=== PATIENT | female | born 1970 | race Caucasian/White ===

== ENCOUNTER 2020-01-26 15:28 | Emergency (ER) | payer OTHER, SELFPAY ==
--- NOTE | ~2020-01-26 | XR_ITS ---
EXAMINATION: XR chest 2V DATE: 01/26/2020 16:18 INDICATION: Chest pain and shortness of breath TECHNIQUE: PA and lateral views of the chest are obtained. COMPARISON: None available FINDINGS: There are minimal left basilar airspace opacities. There is no pleural effusion or pneumoth orax. The cardiomediastinal silhouette is normal. There is mild thoracic spondylosis. Surgical clips in the right upper quadrant are likely from prior cholecystectomy. IMPRESSION: 1. Minimal left basilar airspace opacity, consistent with atelectasis versus pneumonia. Reviewed, dictated and finalized at location A. IMPRESSION: 1. Minimal left basilar airspace opacity, consistent with atelectasis versus pn eumonia.
[2020-01-26 15:29] VITALS: BP 119/87; PULSE 88; RESP 18; TEMP 36.8; O2SAT 100
--- NOTE | 2020-01-26 15:32 | ECG_ITS ---
Measurements Intervals [place] Rate: 77 P: 140 ME: 122 QRS: 119 QRSD: 86 T: 124 QT: 372 QTc: 422 Interpretive Statements SINUS RHYTHM ARM LEADS REVERSED BORDERLINE T WAVE ABNORMALITY- INFERIOR LEADS BASELINE WANDER- V3 BORDERLINE ECG Electronically Signed On 01-26-2020 20:49:58 CDT by Andrew Mccoy D.O.
[2020-01-26 15:52] LABS: Basophils Absolute Auto 0.1 K/mm3 (0.0-0.1); Basophils Percent Auto 0.8 % (0.2-1.2); Eosinophils Absolute Auto 0.2 K/mm3 (0-0.3); Eosinophils Percent Auto 2.4 % (0-4.4); Hematocrit 45.2 % (37.0-47.0); Hemoglobin 15.2 g/dL (12.0-15.0); Immature Granulocyte Absolute 0.05 K/mm3 (0.00-0.031); Immature Granulocyte Percent A 0.6 % (0-0.5); Lymphocytes Absolute Auto 2.48 K/mm3 (0.9-3.2); Lymphocytes Percent Auto 29.3 % (18.3-44.2); Mean Corpuscular HGB Conc 33.6 g/dl (32-36); Mean Corpuscular Hemoglobin 28.8 pg (26-34); Mean Corpuscular Volume 85.6 fl (80-100); Mean Platelet Volume 10.4 fl (7.4-10.4); Monocytes Absolute Auto 0.7 K/mm3 (0.1-0.6); Monocytes Percent Auto 8.5 % (2.6-8.5); Neutrophils Absolute Auto 4.9 K/mm3 (1.3-6.7); Neutrophils Percent Auto 58.4 % (45.5-73.1); Platelet Count Result 271 k/mm3 (150-375); Red Blood Count 5.28 M/mm3 (4.2-5.4); White Blood Count 8.5 K/mm3 (4.5-10.0)
[2020-01-26 16:01] LABS: INR 0.9; Prothrombin Time 11.6 Seconds (11.1-14.7)
[2020-01-26 16:02] LABS: Partial Thromboplastin Time 25.8 SECONDS (22.3-36.8)
[2020-01-26 16:08] LABS: Anion Gap 10.4 mmol/L (7-16); Blood Urea Nitrogen 13 mg/dL (7-17); Calcium 9.1 mg/dL (8.4-10.2); Carbon Dioxide 19 mmol/L (22-30); Chloride 110 mmol/L (98-107); Estimated CRCL calculation 73 ml/min; Estimated Glomerular Filt Rate > 60; Glucose 108 mg/dL (65-105); Potassium 3.4 mmol/L (3.4-5.0); Sodium 136 mmol/L (137-145)
[2020-01-26 16:19] LABS: Troponin I < 0.012 ng/mL (0.000-0.034)
--- NOTE | 2020-01-26 17:33 | ED.CHESTPAIN ---
HPI - Chest Pain General Chief Complaint: Chest Pain Stated Complaint: chest pain Time Seen by Provider: 01/26/20 17:30 History of Present Illness HPI narrative: Intermittent pressure in her chest and SOB for the past 2 weeks. Worse today. She was recently diagnosed with COPD. No fever. Occasional cough. Related Data Home Medications Medication Instructions Recorded Confirmed albuterol sulfate [ProAir HFA] INHALATION 01/26/20 cyclobenzaprine mg 01/26/20 Allergies Allergy/AdvReac Type Severity Reaction Status Date / Time No Known Allergies Allergy Unknown Verified 01/26/20 17:29 Review of Systems Review of Systems: All systems reviewed & are unremarkable except as noted in HPI and below Constitutional: Constitutional: Denies fever(s) Cardiovascular: Cardiovascular: Reports chest pain Respiratory: Respiratory: Reports cough and Reports dyspnea Gastrointestinal: Gastrointestinal: Denies abdominal pain, Denies nausea and Denies vomiting Genitourinary: Genitourinary: Denies dysuria Neurologic: Denies numbness and Denies weakness [facility] Family History Family History Mother Hypertension Family history of diabetes mellitus in first degree relative Family history of coronary artery disease Social History Social History Alcohol intake: current Exam Const: General: healthy appearing, no acute distress and alert Orientation/consciousness: patient oriented x3 HENMT: Head: normal to inspection Neck: Neck: normal visual inspection and no lymphadenopathy Chest: Chest palpation & inspection: no tenderness Resp: Effort & Inspection: normal respiratory effort Auscultation: no wheezes (minimal) Cardio: Jugular venous distension: no JVD Rate: regular rate Rhythm: regular rhythm Heart sounds: no murmurs GI: Inspection: non-distended GI Palp: Yes Soft to palpation and No Tenderness to palpation present (GI) Skin: General skin exam: normal color Neuro: General: patient oriented x3 and moves all extremities Speech: normal speech Extrem: General: no edema Psych: Appearance: well kempt Affect: normal affect Course Vital Signs Vital signs: Vital Signs Temperature 36.8 C 01/26/20 15:29 Pulse Rate 88 01/26/20 15:29 Respiratory Rate 18 01/26/20 15:29 Blood Pressure 119/87 01/26/20 15:29 Pulse Oximetry 100 01/26/20 15:29 Temperature 36.8 C 01/26/20 15:29 Pulse Rate 86 01/26/20 17:59 Respiratory Rate 20 01/26/20 17:59 Blood Pressure 122/77 01/26/20 17:59 Pulse Oximetry 96 01/26/20 17:59 MDM - Chest Pain MDM Narrative Medical decision making narrative: No sign of acute ischemia on EKG. Troponin negative. Possible infiltrate on x-ray. Will start antibiotics and prednisone. She works at [employer] and may have been exposed to COVID-19 so I will order a swab as well. No indication for admission. Medical Records Data Attestation: I reviewed the patient's medical records. Lab Data Attestation: I reviewed the patient's lab results. Result diagrams: 01/26/20 15:37 01/26/20 15:37 Labs: Lab Results 01/26/20 01/26/20 01/26/20 Range/Units 15:37 15:37 15:37 WBC 8.5 (4.5-10.0) K/mm3 RBC 5.28 (4.2-5.4) M/mm3 Hgb 15.2 H (12.0-15.0) g/dL Hct 45.2 (37.0-47.0) % MCV 85.6 (80-100) fl MCH 28.8 (26-34) pg MCHC 33.6 (32-36) g/dl RDW 13.0 (11.5-14.5) % Plt Count 271 (150-375) k/mm3 MPV 10.4 (7.4-10.4) fl Immature Gran % (Auto) 0.6 H (0-0.5) % Neut % (Auto) 58.4 (45.5-73.1) % Lymph % (Auto) 29.3 (18.3-44.2) % Weber % (Auto) 8.5 (2.6-8.5) % Eos % (Auto) 2.4 (0-4.4) % Baso % (Auto) 0.8 (0.2-1.2) % Lymph # (Auto) 2.48 (0.9-3.2) K/mm3 Weber # (Auto) 0.7 H (0.1-0.6) K/mm3 Eos # (Auto) 0.2 (0-0.3) K/mm3 Baso # (Auto) 0.1 (0.0-0.1) K/mm3
[2020-01-26] MEDS: AZITHROMYCIN 250 MG TABLET 500 MG PO (17:56)
[2020-01-26] MEDS: predniSONE 20 MG TABLET 60 MG PO (17:56)
[2020-01-26 17:59] VITALS: BP 122/77; PULSE 86; RESP 20; O2SAT 96
[2020-01-29 01:55] LABS: SARS-CoV-2 RNA PCR Negative
== END 2020-01-26 18:32 | disposition home or self-care (01) ==
PROVIDERS: General Practice; Emergency Provider Emergency Medicine
DX: J18.9 Pneumonia, unspecified organism (principal); Z20.828 Contact with and (suspected) exposure to other viral communicable diseases; J44.9 Chronic obstructive pulmonary disease, unspecified; R94.31 Abnormal electrocardiogram [ECG] [EKG]
CPT/HCPCS: 36415; 71046; 80048; 84484; 85025; 85610; 85730; 87635; 93005; 99284; A9270; C9803; J7512; U0003

== ENCOUNTER 2020-03-15 14:27 | Emergency (ER) | payer OTHER, SELFPAY ==
[2020-03-15 14:34] VITALS: BP 140/103; PULSE 98; RESP 20; TEMP 36.7; O2SAT 100
--- NOTE | 2020-03-15 14:54 | ED.GENADULT ---
HPI - General Adult General Chief complaint: Extremity Injury, Upper Stated complaint: Injury Time Seen by Provider: 03/15/20 14:47 Source: patient and RN notes reviewed Mode of arrival: ambulatory Limitations: no limitations History of Present Illness HPI narrative: Patient presents today complaining of a 4-week history of right wrist pain that has been worse over the last 2 weeks. 1.5 weeks ago she was seen at an urgent care for ear pain/otitis media and was treated with an antibiotic and 100 mg ibuprofen, which she was told would also help with her wrist pain. The wrist pain was not separately evaluated at that time. States pain progresses. Denies numbness or tingling. Patient does have a job at which she does a lot of repetitive lifting as well. Pain increases with movement of the right thumb. She has been taking ibuprofen without relief. She has also been wearing braces and wraps without relief. complaint: Right wrist pain Related Data Home Medications Medication Instructions Recorded Confirmed cyclobenzaprine 10 mg PO DAILY 01/26/20 Allergies Allergy/AdvReac Type Severity Reaction Status Date / Time No Known Allergies Allergy Unknown Verified 03/15/20 14:36 Review of Systems Review of Systems: Narrative: CONSTITUTIONAL: Denies body aches, fever, chills, or sweats. EYES: Denies visual changes, redness, or discharge. ENT: Denies rhinorrhea, congestion, sore throat, or otalgia. CARDIOVASCULAR: Denies chest pain, palpitations, or edema. RESPIRATORY: Denies cough or dyspnea. GASTROINTESTINAL: Denies abdominal pain, nausea, vomiting, or diarrhea. GENITOURINARY: Denies dysuria or hematuria. SKIN: Denies rash, itching, or wounds. MUSCULOSKELETAL: Denies back pain, or myalgia. + Right wrist pain NEUROLOGIC: Denies headache, numbness, tingling, or weakness. PSYCH: Denies depression or anxiety. PMFSH Social History Social History Alcohol intake: current Comments At time of signature, I have reviewed and agree with nursing past medical, surgical, social and family history unless otherwise noted. Please see nursing chart for further information. There is no relevant family history pertinent to the presenting complaint Exam Narrative: Exam Narrative: GENERAL: Well-appearing, well-nourished, and in no acute distress. HEAD: Normocephalic, atraumatic. EYES: EOMI. No redness or drainage. Conjunctivae normal. ENT: Mucous membranes pink and moist. NECK: Normal AROM. CHEST: No respiratory distress. EXTREMITIES: Right wrist: Tenderness to the base of the first metacarpal/distal radius. No edema, ecchymosis, erythema. Full range of motion of the wrist. Pain increases with abduction and adduction of the wrist and movement of the 1st finger. Distal sensation intact. Capillary refill normal. Radial pulse normal. SKIN: Warm, dry, no rash. Capillary refill normal. Normal skin turgor. NEURO: No focal deficits. Alert and oriented x3. Gait steady. PSYCH: Normal affect. No signs of depression or anxiety. Course Vital Signs Vital signs: Vital Signs Temperature 98.1 F 03/15/20 14:34 Pulse Rate 98 03/15/20 14:34 Respiratory Rate 03/15/20 14:34 Blood Pressure 140/103 H 03/15/20 14:34 Pulse Oximetry 100 03/15/20 14:34 Temperature 98.1 F 03/15/20 14:34 Pulse Rate 98 03/15/20 14:34 Respiratory Rate 03/15/20 14:34 Blood Pressure 140/103 H 03/15/20 14:34 Pulse Oximetry 100 03/15/20 14:34 Reviewed. Pt has been instructed to follow up with her PCP regarding her elevated blood pressure today. Medical Decision Making Differential Diagnosis Differential Diagnosis: Tendinitis tendinitis, carpal tunnel syndrome, avascular necrosis, arthritis Vital Signs Vital Signs: Vital Signs Temperature 98.1 F 03/15/20 14:34 Pulse Rate 98 03/15/20 14:34 Respiratory Rate 03/15/20 14:34 Blood Pressure 140/103 H 03/15/20
[2020-03-15 15:17] VITALS: BP 130/85; PULSE 94
== END 2020-03-15 15:17 | disposition home or self-care (01) ==
PROVIDERS: Emergency Provider Nurse Practitioner
DX: M77.9 Enthesopathy, unspecified (principal)
CPT/HCPCS: 99213; G0463

== ENCOUNTER 2020-10-06 14:13 | Emergency (ER) | payer OTHER, SELFPAY ==
[2020-10-06 14:51] VITALS: BP 150/80; PULSE 95; RESP 16; TEMP 36.3; O2SAT 99
--- NOTE | 2020-10-06 15:25 | ED.SKABFB ---
HPI - Skin/Abscess/Foreign Bdy General Chief complaint: Skin/Abscess/Foreign Body Stated complaint: cyst right side of neck Time Seen by Provider: 10/06/20 15:25 Source: patient and RN notes reviewed Mode of arrival: ambulatory Limitations: no limitations History of Present Illness HPI narrative: 50-year-old female presents with concern for painful cyst on the back of her neck to the right side. Reports for a year she had a painless not that within the last couple days became large, tender, red, warm. She denies any intervention. Denies general malaise, fever, chills. Denies drainage from the area complaint: abscess/boil Related Data Home Medications Medication Instructions Recorded Confirmed cyclobenzaprine 10 mg PO DAILY 01/26/20 10/06/20 Allergies Allergy/AdvReac Type Severity Reaction Status Date / Time No Known Allergies Allergy Unknown Verified 10/06/20 14:46 Review of Systems Review of Systems: Narrative: CONSTITUTIONAL: Denies malaise, chills, sweats, or fever. CARDIOVASCULAR: Denies chest pain, palpitations, or edema. RESPIRATORY: Denies cough or dyspnea. GASTROINTESTINAL: Denies abdominal pain, nausea, vomiting SKIN: Reports painful, red, warm cyst on the back of her neck to the right. MUSCULOSKELETAL: Denies back pain or myalgia. NEUROLOGIC: Denies numbness, weakness, or headache. All systems reviewed & are unremarkable except as noted in HPI and below PMFSH Family History Family History Mother Hypertension Family history of diabetes mellitus in first degree relative Family history of coronary artery disease Social History Social History Alcohol intake: current Comments At time of signature, agree with nursing past medical, surgical, social and family history. There is no relevant family history pertinent to the presenting complaint Exam Narrative: Exam Narrative: GENERAL: Well-appearing, well-nourished, and in no acute distress. HEAD: Normocephalic, atraumatic. EYES: PERRLA, conjunctivae clear ENT: Mucous membranes moist. NECK: Supple. No lymphadenopathy. CHEST: No respiratory distress.Speaks in full sentences. HEART: Regular rate and rhythm. SKIN: Warm, dry. 6 cm area of induration, erythema with central elevation noted to the upper back at the base of the neck with mild fluctuation, no drainage NEURO: Alert and oriented x3. PSYCH: Normal mood and affect Course Course Emergency Course: Patient is aware of diagnosis, understands and agrees to treatment plan. Anticipatory guidance given. Patient agrees to follow-up as directed and is aware of reasons to seek care at the emergency department. Portions of this record may have been created with voice recognition software Vital Signs Vital signs: Vital Signs Temperature 97.4 F L 10/06/20 14:51 Pulse Rate 95 10/06/20 14:51 Respiratory Rate 16 10/06/20 14:51 Blood Pressure 150/80 H 10/06/20 14:51 Pulse Oximetry 99 10/06/20 14:51 Temperature 97.4 F L 10/06/20 14:51 Pulse Rate 95 10/06/20 14:51 Respiratory Rate 16 10/06/20 14:51 Blood Pressure 150/80 H 10/06/20 14:51 Pulse Oximetry 99 10/06/20 14:51 Reviewed. Patient has been instructed to follow up with her primary care provider within the next week regarding her elevated blood pressure today. Procedures Abscess I/D back: Date of Incision: 10/06/20 Time of Incision: 15:33 Side (if applicable): right Local Anesthetic: lidocaine 1% Amount of anesthesia used (mL): 4 Technique: incised with #11 blade Irrigation: Yes Packing used?: none I&D Results: Pus Abcess I&D Additional Comments: Incision closed with Steri-Strips MDM - Skin/Abscess/Foreign Bdy MDM Narrative Medical decision making narrative: Verbal consent were obtained. The indication for the procedure was clinical s
== END 2020-10-06 16:09 | disposition home or self-care (01) ==
PROVIDERS: Emergency Provider Nurse Practitioner
DX: L02.11 Cutaneous abscess of neck (principal); G47.30 Sleep apnea, unspecified; M79.7 Fibromyalgia; Z90.711 Acquired absence of uterus with remaining cervical stump; M34.9 Systemic sclerosis, unspecified
CPT/HCPCS: 10060; 87070; 87075; 87076; 87205; 99213; G0463

== ENCOUNTER 2020-11-22 16:10 | Emergency (ER) | payer OTHER, SELFPAY | END 2020-11-22 17:13 | PROVIDERS: Emergency Provider Emergency Medicine | DX: Z53.21 Procedure and treatment not carried out due to patient leaving prior to being seen by health care provider (principal) | CPT/HCPCS: 99199 ==

== ENCOUNTER 2024-03-30 23:21 | Emergency (ER) | payer OTHER, SELFPAY ==
--- NOTE | ~2024-03-30 | XR_ITS ---
XR hand LT 2V 03/31/2024 08:06 Indication: Left hand pain and swelling Procedure: 3 views left hand Comparison: No prior studies for comparison. Findings: Mild polyarticular osteoarthritis. No fracture, subluxation or dislocation. No significant soft tissue abnormality. No foreign bodies. No erosive changes. Impression: 1: No acute fracture. Reviewed, dictated and finalized at location B. Impression: 1: No acute fracture.
[2024-03-30 23:23] VITALS: BP 135/83; PULSE 80; RESP 18; TEMP 36.6; O2SAT 100
[2024-03-31 02:03] VITALS: BP 143/75; PULSE 84; RESP 16; TEMP 36.8; O2SAT 97
[2024-03-31 05:23] VITALS: BP 140/100; PULSE 87; RESP 17; TEMP 36.9; O2SAT 100
[2024-03-31 05:58] LABS: Basophils Absolute Auto 0.1 K/mm3 (0.0-0.1); Basophils Percent Auto 0.5 % (0.2-1.2); Eosinophils Absolute Auto 0.2 K/mm3 (0-0.3); Eosinophils Percent Auto 2.4 % (0-4.4); Hematocrit 42.9 % (37.0-47.0); Hemoglobin 14.2 g/dL (12.0-15.0); Immature Granulocyte Absolute 0.04 K/mm3 (0.00-0.031); Immature Granulocyte Percent A 0.4 % (0-0.5); Lymphocytes Absolute Auto 2.02 K/mm3 (0.9-3.2); Lymphocytes Percent Auto 21.7 % (18.3-44.2); Mean Corpuscular HGB Conc 33.1 g/dl (32-36); Mean Corpuscular Volume 87.6 fl (80-100); Mean Platelet Volume 9.9 fl (7.4-10.4); Monocytes Absolute Auto 0.8 K/mm3 (0.1-0.6); Monocytes Percent Auto 8.8 % (2.6-8.5); Neutrophils Absolute Auto 6.2 K/mm3 (1.3-6.7); Neutrophils Percent Auto 66.2 % (45.5-73.1); Platelet Count Result 249 k/mm3 (150-375); Red Cell Distribution Width 12.6 % (11.5-14.5); White Blood Count 9.3 K/mm3 (4.5-10.0)
[2024-03-31 06:16] LABS: Alanine Aminotransferase 26 U/L (6-35); Alkaline Phosphatase 99 U/L (38-126); Anion Gap 6 mmol/L (4-12); Aspartate Amino Transferase 28 U/L (14-36); Bilirubin,Total 0.4 mg/dL (0.2-1.3); Blood Urea Nitrogen 16 mg/dL (7-17); Calcium 8.9 mg/dL (8.4-10.2); Carbon Dioxide 25 mmol/L (22-30); Chloride 108 mmol/L (98-107); Estimated CRCL calculation 72 ml/min; Estimated Glomerular Filt Rate > 60; Glucose 116 mg/dL (65-110); Potassium 3.6 mmol/L (3.4-5.0); Sodium 139 mmol/L (137-145)
--- NOTE | 2024-03-31 07:09 | ED.GENADULT ---
HPI - General Adult General Chief complaint: Skin/Abscess/Foreign Body Stated complaint: swollen left hand Time Seen by Provider: 03/31/24 07:09 Source: patient Mode of arrival: ambulatory Limitations: no limitations History of Present Illness HPI narrative: 53 years old white female with history of scleroderma fibromyalgia presents with swollen, pain of the left hand dorsally. Patient denies any trauma. History of IV drug abuse last use was 2 years ago. She denies any fever, chills, nausea, vomiting, chest pain or shortness of breath. Related Data Allergies Allergy/AdvReac Type Severity Reaction Status Date / Time No Known Allergies Allergy Unknown Verified 03/31/24 05:25 Review of Systems Review of Systems: All systems reviewed & are unremarkable except as noted in HPI and below PMFSH Family History Family History Mother Hypertension Family history of diabetes mellitus in first degree relative Family history of coronary artery disease Social History Social History Alcohol intake: current Exam Narrative: General appearance: Well-developed, well-nourished Skin: Normal color, multiple old scars, cuts, IV access is for arms bilaterally, left and exam showed swollen, diffusely tender dorsally, 2+ edema, slightly warm to touch, no discharge or open wounds Head: Normocephalic, nontraumatic Eyes: Clear conjunctiva ENT: Oropharynx normal, ears normal, nose normal Neck: Supple, nontender Chest and respiratory: Airway patent, no respiratory distress, no accessory muscle use Heart: Regular rate/rhythm Abdomen: Soft, nontender, no organomegaly, quiet bowel sounds Vascular: Normal peripheral pulses, normal capillary refill. Musculoskeletal: Normal range of motion, nontender back Neurologic: Alert and oriented ?3, [employer] is normal as tested, no gross motor deficit Course Vital Signs Vital signs: Vital Signs Temperature 36.6 C 03/30/24 23:23 Pulse Rate 80 03/30/24 23:23 Respiratory Rate 18 03/30/24 23:23 Blood Pressure 135/83 03/30/24 23:23 Pulse Oximetry 100 03/30/24 23:23 Oxygen Delivery Room Air 03/30/24 23:23 Temperature 36.9 C 03/31/24 05:23 Pulse Rate 87 03/31/24 05:23 Respiratory Rate 17 03/31/24 05:23 Blood Pressure 140/100 H 03/31/24 05:23 Pulse Oximetry 100 03/31/24 05:23 Oxygen Delivery Room Air 03/30/24 23:23 Medical Decision Making MDM Narrative Medical decision making narrative: Differential diagnosis include scaly rhythm a related symptoms, infection, arthritis, less likely fracture. X-ray left hand showed no acute abnormalities Blood workup today showed CRP of 3.0 Patient received the vancomycin IV prior to discharge Patient was advised to keep left hand elevated, follow-up with her manager managed backup services as soon as possible for possible arthritis, arthralgia secondary to autoimmune disease, discharged on clindamycin for possible infection, steroid possible autoimmune related arthritis/arthralgia and diclofenac. Discharge the pt was discharged to home.the pt,s condition upon discharge was fair,education was provided to the pt in reference to the final impression,discharge study results,treatment,prognosis and need for follow up . Differential Diagnosis Differential Diagnosis: As above Vital Signs Vital Signs: Vital Signs Temperature 36.6 C 03/30/24 23:23 Pulse Rate 80 03/30/24 23:23 Respiratory Rate 18 03/30/24 23:23 Blood Pressure 135/83 03/30/24 23:23 Pulse Oximetry 100 03/30/24 23:23 Oxygen Delivery Room Air 03/30/24 23:23 Temperature 36.9
[2024-03-31] MEDS: VANCOMYCIN 1,000 MG/NS 250 ML 1,000 MG/250 ML BAG 250 MG IVPB (09:03)
[2024-03-31 09:13] VITALS: BP 138/86; PULSE 70; RESP 18; TEMP 36.6; O2SAT 97
== END 2024-03-31 10:56 | disposition home or self-care (01) ==
PROVIDERS: Student in an Organized Health Care Education/Training Program; Emergency Provider Emergency Medicine
DX: M79.642 Pain in left hand (principal); M79.7 Fibromyalgia; M34.9 Systemic sclerosis, unspecified
CPT/HCPCS: 36415; 73120; 80053; 85025; 86140; 87040; 96365; 96366; 99284; J3370